=== PATIENT | female | born 1945 | race Caucasian/White ===

== ENCOUNTER 2024-03-16 09:56 | Outpatient (RCR) | payer OTHER, SELFPAY | END 2024-03-16 23:59 | disposition home or self-care (01) | LOC: RPT 09:56 | PROVIDERS: ATTENDING PHYSICIAN Student in an Organized Health Care Education/Training Program; FAMILY PHYSICIAN Internal Medicine | DX: M25.571 Pain in right ankle and joints of right foot (principal); R26.89 Other abnormalities of gait and mobility; R26.2 Difficulty in walking, not elsewhere classified; M62.81 Muscle weakness (generalized); Z73.6 Limitation of activities due to disability | CPT/HCPCS: 97010; 97110; 97140; 97162 ==

== ENCOUNTER 2024-03-24 10:56 | Outpatient (RCR) | payer OTHER, SELFPAY | END 2024-03-24 12:39 | disposition home or self-care (01) | LOC: RPT 10:56 | PROVIDERS: ATTENDING PHYSICIAN Student in an Organized Health Care Education/Training Program; FAMILY PHYSICIAN Internal Medicine | DX: M25.571 Pain in right ankle and joints of right foot (principal); R26.9 Unspecified abnormalities of gait and mobility | CPT/HCPCS: 97010; 97110; 97140 ==

== ENCOUNTER → 2024-04-07 10:51 | Outpatient (REF) | payer OTHER, SELFPAY | LOC: WDC 10:51 | PROVIDERS: ATTENDING PHYSICIAN Internal Medicine | DX: Z12.31 Encounter for screening mammogram for malignant neoplasm of breast (principal) | CPT/HCPCS: 77063; 77067 ==

== ENCOUNTER → 2024-04-20 06:23 | Day surgery (SDC) | payer OTHER, SELFPAY | LOC: GI 06:23 | PROVIDERS: ATTENDING PHYSICIAN Internal Medicine Gastroenterology | DX: K22.89 Other specified disease of esophagus (principal); K44.9 Diaphragmatic hernia without obstruction or gangrene; K31.7 Polyp of stomach and duodenum; K31.89 Other diseases of stomach and duodenum; K21.9 Gastro-esophageal reflux disease without esophagitis | CPT/HCPCS: 43239; 88305 ==

== ENCOUNTER → 2024-06-01 13:19 | Outpatient (REF) | payer OTHER, SELFPAY | LOC: RAD 13:19 | PROVIDERS: ATTENDING PHYSICIAN Student in an Organized Health Care Education/Training Program | DX: M81.0 Age-related osteoporosis without current pathological fracture (principal) | CPT/HCPCS: 77080 ==

== ENCOUNTER → 2025-04-15 15:34 | Outpatient (REF) | payer OTHER, SELFPAY | LOC: WDC 15:34 | PROVIDERS: ATTENDING PHYSICIAN Student in an Organized Health Care Education/Training Program | DX: Z12.31 Encounter for screening mammogram for malignant neoplasm of breast (principal) | CPT/HCPCS: 77063; 77067 ==